=== PATIENT | female | born 1985 ===

== ENCOUNTER 2018-03-01 09:43 | Inpatient (IN) | payer MEDICAID, SELFPAY ==
[2018-02-28 20:00] VITALS: BMI 27.1
[2018-03-01] MEDS: Lactated Ringer's 1,000 ML IV ONE ×2 (10:30→11:30)
[2018-03-01 11:27] LABS: BASO % 0.2 % (0.0-2.0); EOS % 0.1 % (0.0-4.0); HEMOGLOBIN 11.4 g/dL (12.0-16.0); LYMPH # 1.7 K/uL (1.0-4.3); LYMPH % 8.8 % (20.0-40.0); MEAN CELL VOLUME 85.9 fl (81.0-99.0); MEAN CORPUSCULAR HGB CONC 33.7 g/dL (33.0-37.0); MEAN PLATELET VOLUME 10.2 fl (7.2-11.7); MONO # 0.9 K/uL (0.0-0.8); MONO % 4.5 % (0.0-10.0); NEUT % 86.4 % (50.0-75.0); NRBC % 0.1 % (0.0-0.0); PLATELET COUNT 234 K/uL (130-400); RBC 3.95 Mil/uL (3.80-5.20); RED CELL DISTRIBUTION WIDTH 14.8 % (11.5-14.5); WHITE BLOOD COUNT 19.7 K/uL (4.8-10.8)
[2018-03-01] MEDS ORDERED: Fentanyl/Bupivacaine HCl 250 ML EPI ONE (11:58)
[2018-03-01] MEDS ORDERED: Oxytocin 30 UNIT 30 UNITS/500 ML BAG IV ONE (12:22)
[2018-03-01] MEDS ORDERED: OXYTOCIN/0.9 % NS 20 UNIT/1,000 ML BAG IV SCH ×2 (12:30→17:44)
[2018-03-01 13:13] LABS: BANDS 1 % (0-2); LYMPHOCYTE 9 % (20-50); METAMYELOCYTE 1 % (0-0); MONOCYTE 2 % (0-10); NEUTROPHIL 87 % (42-75); PLATELET ESTIMATE NORMAL (NORMAL); TOTAL CELLS COUNTED 100
[2018-03-01 13:14] LABS: ANISOCYTOSIS SLIGHT; HYPOCHROMIC SLIGHT; LARGE PLATELETS PRESENT; TOXIC GRANULATION PRESENT
[2018-03-01] MEDS ORDERED: ceFAZolin 2 GM in Sodium Chloride 0.9% 100 ML IVPB ONE (13:15)
--- NOTE | 2018-03-01 13:25 | OBPN ---
Datetime: 03/01/2018 13:21 IP Informed Consent Obtain: Section Delivery FHR - Baseline A Provider: 140 IP Progress Note Comment: Patient evaluated, has been having repetative lates for over an hour despi te rescuscitation with changing positions and O2 mask.The patient has moderate variability and repeta tive lates. Discused with patient that because of the Cat II strip remote from delivery, the recommen dation for delivery is for . Discussed risks/benefits of surgery including risk of bleeding, infection, damage to surrounding organs, Ancef given pre-opertively, pt enroute to OR. Consent rigo d Vital Signs Provider: Reviewed NICHD Variability Prov Fetus A: Moderate 6-25bpm Dilatation, Provider: 4 Effacement, Provider: thick Station, Provider: -3 NICHD Decel Fetus A IP Provider: Late Datetime: 03/01/2018 10:35 Contraction Comments Provider: Q3 min IP Fetus A Comments: Sporadic late decelerations with one prolonged late deceleration with recovery Gestation - Est Wks by US: 41.0 Presentation-Admit: Vertex NICHD Accel Fetus A IP Provider: 15X15 FHR Category Provider Fetus A: Category II Datetime: 02/28/2018 20:18 Membranes, Provider: Intact
[2018-03-01] MEDS ORDERED: Morphine 1 mg/ml preservative-free Inj(Duramorph) ONE (14:34)
[2018-03-01] MEDS ORDERED: Oxycodone/Acetaminophen 5/325 mg Tab PO PRN ×2 (14:47→17:44)
--- NOTE | 2018-03-01 15:00 | OBDS ---
DELIVERY PERSONNEL Delivery Doctor: Areli Munoz MD Bladder Trimmer: Joselin Murcia RN Anesthesiologist: Ulices Gale MD Resident: Dr. Lena Beaver,OBR MATERNAL INFORMATION Delivery Anesthesia: Epidural Medications in Delivery: Pitocin 30 mu/500 mL LR, Pitocin 20 mu/1000 mL LR Estimated Blood Loss (ml): 600 Placenta Cultured: Yes Maternal Complications: None Provider Comments: Surgeon: Dr. Munoz Auto [employer]ic Dr. Paez OB fellow, Dr. Guerra PGY-3, Dr. Beaver PGY-1 Pre-operative Dx: Term with Cat-2 tracing remote from delivery Surgery: LTCS Post-op: same Findings: Live female infant vertex, 6lbs 5oz, 6/6/7 APGARS, thick meconium, grossly nml tubes ova jesse, placenta, uterus Anesthesia: epidural by Dr. Gale [id number] Total input: 1500mL HT=809 mL COmplications: none Condition: stable Pathology: cord ph, cord blood, placenta LABOR SUMMARY EDC: 02/22/2018 00:00 No. Babies in Womb: 1 LABOR INFORMATION Reason for Induction: Not Applicable Oxytocin: N/A Group B Beta Strep: Negative Antibiotics # of Doses: 1 Antibiotics Time of Last Dose: 1330 Steroids Given: None Reason Steroids Not Administered: Not Applicable MEMBRANES Amniotic Fluid Amount: Moderate PRESENTATION/POSITION BABY A Presentation: Cephalic
--- NOTE | 2018-03-01 15:05 | OBADHP ---
Datetime: 03/01/2018 13:21 FHR - Baseline A Provider: 140 Vital Signs Provider: Reviewed NICHD Variability Prov Fetus A: Moderate 6-25bpm NICHD Decel Fetus A IP Provider: Late Dilatation, Provider: 4 Effacement, Provider: thick Station, Provider: -3 Datetime: 03/01/2018 10:35 Admit Comment, IP Provider: HPI: Lashawn is a 33yo at 41.0 weeks here for evaluation of painful contractions. She's been seen here multiple times over the last 48 hours for painful contractions wi th no cervical change. Since going home last night she's continued to have painful contractions every 3-5 minutes. She was scheduled for induction of labor tonight but the pain has become too intense. D ating is by LMP with US at 20 weeks consistent with dates. ROS: No vaginal bleeding or LOF, good movement History G1: 2006, TAB G2: current PMH Not significant PSH Not significant Medications PNV Allergies NKDA Social Lives with partner and FOB. No tobacco, alcohol or drug use OBJECTIVE See PE section labs: Hep B neg, HIV/RPR neg (1st and 3rd tri), Rubella immune, GTT WNL, GBS neg Assessment/Plan: 33yo at 41.0 weeks here for painful contractions. Her last exam was yesterda y evening and she had not made any cervical change at that time. Given her dilation and effacement cu rrently she is in latent labor but is struggling with pain control. - Admit for expectant management of spontaneous labor - Epidural available - Can augment labor if necessary - GBS negative Ana Paez MD OB Fellow [facility] by Dr. Jones: Patient evaluated independently and I agree with the above Abdomen - PN: Normal Lungs - PN: Normal Heart - PN: Normal Neurologic - PN: Normal HEENT - PN: Normal General - PN: Normal Presentation-Admit: Vertex IP Fetus A Comments: Sporadic late decelerations with one prolonged late deceleration with recovery Contraction Comments Provider: Q3 min Gestation - Est Wks by US: 41.0 IP Chief Complaint: Uterine contractions NICHD Accel Fetus A IP Provider: 15X15 FHR Category Provider Fetus A: Category II EGA AdmitDate IP: 41.0 IP Adm Impression: Term, intrauterine IP Admit Plan: Admit to unit; Initiate labor protocol Datetime: 02/28/2018 20:18 Back - PN: Normal Membranes, Provider: Intact Genitourinary Exam: Not Done Datetime: 02/27/2018 04:15 Pelvic Type - PN: Adequate Extremities - PN: Normal Breast - PN: Not Done Thyroid - PN: Normal IP Hx Assessment: The History has been Reviewed and is Current DTRs - PN: Not Done
--- NOTE | 2018-03-02 02:17 | OP ---
PROCEDURE DATE: 03/01/2018 SURGEON: Yuki Munoz MD ASSISTANTS: Dr. Paez, OB Fellow; PGY-3; and Dr. Beaver, PGY-1. PREOPERATIVE DIAGNOSES: Term with category II tracing, remote from delivery, repetitive late decelerations. POSTOPERATIVE DIAGNOSES: Term with category II tracing, remote from delivery, repetitive late decelerations. PROCEDURE: Low transverse section. FINDINGS: Live female infant, vertex presentation, 6 pounds and 5 ounces, 6 and 7 Apgars, thick meconium. Grossly normal tubes, ovaries, placenta, and uterus. ANESTHESIA: Epidural by Dr. Gale. ESTIMATED BLOOD LOSS: 600 mL. TOTAL FLUID INPUT: 1300 mL. URINE OUTPUT: 700 mL. COMPLICATIONS: None. CONDITIONS: Stable. PATHOLOGY SPECIMEN: Cord pH, cord blood, and placenta. INDICATIONS: This is a 32-year-old G2, P0, at 41 weeks presented to labor and delivery with contractions and an early labor. The patient was found to have category II tracing with repetitive late decelerations in spite resuscitation with only 4 cm remote from delivery. The late decelerations did not resolve, and it was advised for the patient to proceed with for delivery. tracings the patient had minimal variability with late decelerations as well. The patient was advised of risks and benefits of the procedure including risk of bleeding, infection, and damage to surrounding organs such as bowel, bladder, ureter or uterus. The patient verbalized understanding and signed the informed consent. DESCRIPTION OF PROCEDURE: The patient was taken to OR. Ancef was given preoperatively. SCDs were placed bilaterally. The patient was prepped and draped in normal sterile fashion in dorsal supine position with a leftward tilt. Pfannenstiel skin incision was made with a scalpel and carried through the underlying layer of fascia with the scalpel and the Bovie. Fascia was incised in the midline, incision was extended laterally with the Bovie. Lili clamps were used to tent up the inferior aspect of this incision which we dissected off underlying pyramidalis muscles with the Bovie. In a similar fashion, we tented up the superior aspect of this incision, which we dissected off the underlying rectus abdominis muscles with Bovie. Muscles were bluntly at the midline. Peritoneum was identified and entered sharply with the Metzenbaum scissors. The incision was extended superiorly and inferiorly with good visualization of all underlying organs. The bladder flap was created with the Metzenbaum scissors. The lower uterine segment was incised in the transverse fashion with the scalpel. The uterine cavity was entered. The uterine incision was extended with bandage scissors. Thick meconium was noted. The infant was delivered in cephalic presentation followed by shoulders and rest of the infant in cephalic presentation. Cord was clamped and cut. Infant was handed off to the awaiting pediatric team. Cord pH was obtained and cord blood was also obtained. Placenta was extracted manually. Uterus exteriorized and cleared off all clots. Uterine incision was repaired with an 0 Vicryl stitch, and imbricating with an 0 Monocryl stitch. Hysterotomy site appeared to be hemostatic. The uterus was returned to the abdomen. Gutters were cleared off all clots. Again, hysterotomy site appeared to be hemostatic. The peritoneum was closed with a 2-0 Monocryl. The same incision was used to reapproximate the muscle. Fascia was closed with the 0 Vicryl. Small bleeders were cauterized with the Bovie and the skin was closed with a 4-0 Monocryl. Sponge, lap, and needle counts were correct x4. The patient was taken to the recovery room in stable condition. No other complications. Yuki Munoz MD
[2018-03-02 06:28] LABS: HEMOGLOBIN 8.4 g/dL (12.0-16.0); MEAN CELL VOLUME 88.3 fl (81.0-99.0); MEAN CORPUSCULAR HEMOGLOBIN 28.8 pg (27.0-31.0); MEAN CORPUSCULAR HGB CONC 32.6 g/dL (33.0-37.0); RBC 2.9 Mil/uL (3.80-5.20); RED CELL DISTRIBUTION WIDTH 14.9 % (11.5-14.5); WHITE BLOOD COUNT 16.4 K/uL (4.8-10.8)
[2018-03-02] MEDS: Multivitamin With Minerals Tab PO SCH (08:59)
[2018-03-02] MEDS ORDERED: Multivitamin With Minerals Tab PO SCH (09:00)
--- NOTE | 2018-03-02 14:13 | OBPPN ---
Datetime: 03/02/2018 13:54 PP Pain Prov: Within normal limits PP Nausea Prov: Denies PP Flatus Prov: Yes PP BM Prov: No PP Breasts Prov: Normal PP Heart Prov: Normal PP Lungs Prov: Normal PP Abdomen/Uterus Prov: Normal PP Lochia Prov: Normal PP Vulva/Perineum Prov: Normal PP CVA Tenderness Prov: Normal PP Extremities Prov: Normal PP C/S Incision Prov: Normal PP Progress Prov: Normal PP Impression Prov: Normal progression PP Plan Prov: Continue present management PP Progress Note Prov: OB Hospitalist on-call. Pt seen on rounds today She feels fine; no problems H/H 02/13 A; S/P C/S day 1 PLAN: contiune postop care Vital Signs Provider PP: Reviewed; Within Normal Limits
[2018-03-03] MEDS: Multivitamin With Minerals Tab PO SCH (08:37)
--- NOTE | 2018-03-03 12:51 | OBPPN ---
Datetime: 03/03/2018 06:09 PP Pain Prov: Within normal limits PP Nausea Prov: Denies PP Flatus Prov: Yes PP BM Prov: No PP Breasts Prov: Not Done PP Heart Prov: Normal PP Lungs Prov: Normal PP Abdomen/Uterus Prov: Normal PP Lochia Prov: Normal PP Vulva/Perineum Prov: Not Done PP CVA Tenderness Prov: Normal PP Extremities Prov: Normal PP C/S Incision Prov: Normal PP Progress Prov: Normal PP Comments Phys Exam Prov: hgb 8.4 PP Impression Prov: Normal progression PP Plan Prov: Continue present management PP Progress Note Prov: Patient seen and examined at the bedside in morning. Patient lying comfortabl y in bed. States she passed flatus, but no BM. She reports taking a stool softner yesterday. Tolerating PO diet. Lochia like menses. Patient without any difficulties. VSS, Afebrile Gen: NAD Lungs: CTA bilaterally CVS: RRR, S1, S2 WNL, no murmurs. Abd: ND, +BS, appropriated tenderness, fundus firm at umbilical level. incision intact. Ext: No edema, negative calf tenderness. Neuro/psych: AAOx3 A/P: 32 y/o female 41.0 wk GA ppd2 s/p -Encourage ambulation -Diet as tolerated -Ibuprofen 600 mg for pain mgmt -Senakot and colace for constipation -anticipated discharge 03/04/2018 Evelyn Hua PGY-I Patient seen and evaluated by me. Agree with above resident note. Ambulation encouraged. Continue pain meds as needed. encouraged. Vital Signs Provider PP: Reviewed; Within Normal Limits
[2018-03-04] MEDS: Multivitamin With Minerals Tab PO SCH (08:32)
--- NOTE | 2018-03-04 10:54 | OBDCSUM ---
Datetime: 03/03/2018 23:37 Discharged to, Provider: Home Follow up at, Provider: Dr. Guerra Disch Instr Diet: Regular Discharge Instructions, Provider: Routine instructions given Discharge Diagnosis, Provider: Term Delivered Discharge Time: 03/04/2018 11:00 Follow up in weeks, Provider: 1-2 weeks Disch Referrals: None Disch Activity Restrictions: No lifting; No sexual activity; Nothing in vagina - [place], tampon s, douche Discharge Comment, Provider: DOA: 03/01/2018 EGA: 41.0 Dx: Term intrauterine 32 y/o f presented at 41.1 weeks GA w/ c/o painful contractions, cervix closed. She developed late decels, and underwent . L_D summary: Recurrent decels, w/o complications. EBL 800mL. Thick meconium in amniotic fluid. DOL: 03/01/18 13:49 5/6/7 Weight 2850 No serious complications during PP/Post op Lochia like menses, mild pain, controllled w/ rx Rubella Immune, tdab 01/15/18 Blood type O+ CBC pp H/H 8.4/25.6 Discharge date 03/04/2018 Time: 12:40 Discharge instructions: -encourage -ibuprofen for pain PRN -Senokot 17.2mg qHs for constipation -ambulate as tolerated -patient scheduled for f/u w/ Dr. Guerra on 02/09 for wound check and in 4-6 weeks for f/u. Evelyn Hua PGY-I Attending addendum: I saw and examined the patient myself this morning at bedside. I reviewed the resident note above and agree with findings and management. Contraception after Delivery: Undecided
--- NOTE | 2018-03-04 10:54 | OBPPN ---
Datetime: 03/04/2018 05:05 PP Pain Prov: Within normal limits PP Nausea Prov: Denies PP Flatus Prov: Yes PP BM Prov: Yes PP Breasts Prov: Not Done PP Heart Prov: Normal PP Lungs Prov: Normal PP Abdomen/Uterus Prov: Normal PP Lochia Prov: Normal PP Vulva/Perineum Prov: Not Done PP CVA Tenderness Prov: Normal PP Extremities Prov: Normal PP C/S Incision Prov: Normal PP Progress Prov: Normal PP Impression Prov: Normal progression PP Plan Prov: Continue present management; Discharge PP Progress Note Prov: Patient seen and examined at the bedside in morning. Patient lying comfortabl y in bed. Reports passing stool. Tolerating PO diet.Lochia like menses. Patient without any difficulties. VSS, Afebrile Gen: NAD Lungs: CTA bilaterally CVS: RRR, S1, S2 WNL, no murmurs. Abd: ND, +BS, appropriated tenderness, fundus firm at umbilical level. incision intact. Ext: No edema, negative calf tenderness. Neuro/psych: AAOx3 A/P: 32 y/o female 41.0 wk GA ppd3 s/p -Encourage ambulation -Diet as tolerated -Ibuprofen 600 mg for pain mgmt -Senakot for constipation -anticipated discharge today Evelyn Hua PGY-I Attending addendum: I saw and examined the patient myself this morning at bedside. I reviewed the resident note above and agree with findings and management. DC home today after ND supp for constipation. Anemia: asymptomatic, iron supplement po TID X 3 months and PNV. Vital Signs Provider PP: Reviewed; Within Normal Limits
[2018-03-04 20:42] VITALS: BP 105/66; PULSE 79; RESP 20; TEMP 98; O2SAT 98
== END 2018-03-04 14:20 | disposition home or self-care (01) | DRG 371 ==
LOC: H.EROB2 09:43 → H.L&D 09:46 → H.EROB2 10:22 → H.L&D 10:23 → H.OB/GYN 17:06
PROVIDERS: ADMIT Obstetrics & Gynecology; ATTEND Obstetrics & Gynecology
PROC: 10D00Z1 Extraction of Products of Conception, Low, Open Approach (ICD-10-PCS; principal; 2018-03-01)
PROC: 4A1HXCZ Monitoring of Products of Conception, Cardiac Rate, External Approach (ICD-10-PCS; 2018-03-01)
DX: O48.0 Post-term pregnancy (principal); O76 Abnormality in fetal heart rate and rhythm complicating labor and delivery; O77.0 Labor and delivery complicated by meconium in amniotic fluid; Z3A.41 41 weeks gestation of pregnancy; Z37.0 Single live birth; K59.00 Constipation, unspecified

== ENCOUNTER 2018-03-10 23:23 | Emergency (ER) | payer SELFPAY ==
[2018-03-10 23:24] VITALS: BMI 27.1
[2018-03-11] VITALS: RESP 17
[2018-03-11] MEDS ORDERED: Sodium Chloride 0.9% 1,000 ML IV STA ×2 (00:10→01:51)
--- NOTE | 2018-03-11 00:43 | ED PDOC ---
HPI: Abdomen Time Seen by Provider: 03/11/18 00:03 Chief Complaint (Nursing): Wound Check Chief Complaint (Provider): Abdominal pain, fever History Per: Patient History/Exam Limitations: no limitations Onset/Duration Of Symptoms: Days Current Symptoms Are (Timing): Still Present Location Of Pain/Discomfort: Diffuse Associated Symptoms: Fever Additional History Per: Patient Additional Complaint(s): 32yo female, currently s/p a 10 days ago, comes to ER reporting fever x 1 day. She states she felt normal until today but now has abdominal pain, diffuse bodyaches and a headache. Patient reports normal urine and denies any diarrhea. She last took Tylenol at 4pm yesterday with minimal relief. She denies any discharge, swelling or redness to the surgical site. PMD: [facility] Past Medical History Reviewed: Historical Data, Nursing Documentation, Vital Signs Vital Signs: Last Vital Signs Temp 100.1 F H 03/11/18 03:03 Pulse 92 H 03/11/18 03:03 Resp 17 03/11/18 03:03 BP 121/56 L 03/11/18 03:03 Pulse Ox 99 03/11/18 03:05 - Medical History PMH: No Chronic Diseases Denies: Depression, Diabetes, HTN - Surgical History Surgical History: - Family History Family History: States: No Known Family Hx - Living Arrangements Living Arrangements: With Family - Home Medications Home Medications: Ambulatory Orders Medication Instructions Recorded Vit No.126/Iron/Folic 1 tab PO DAILY 03/01/18 [Classic Tablet] Docusate [Colace] 100 mg PO BID 90 Days cap 03/04/18 Docusate [Colace] 100 mg PO TID PRN 10 Days cap 03/04/18 Ferrous Sulfate [Feosol] 325 mg PO TID 90 Days tab 03/04/18 Ibuprofen [Motrin Tab] 600 mg PO Q6H PRN 20 Days #20 tab 03/04/18 Multimineral/Multivitamin 1 tab PO DAILY tab 03/04/18 [Therapeutic-M Tab] oxyCODONE/Acetaminophen [Percocet 1 tab PO Q4 PRN #20 tab 03/04/18 5/325 mg Tab] - Allergies Allergies/Adverse Reactions: Allergies Allergy/AdvReac Type Severity Reaction Status Date / Time No Known Allergies Allergy Verified 09/09/18 20:00 Review of Systems ROS Statement: Except As Marked, All Systems Reviewed And Found Negative Constitutional: Positive for: Fever Cardiovascular: Negative for: Chest Pain Respiratory: Negative for: Shortness of Breath Gastrointestinal: Positive for: Abdominal Pain. Negative for: Nausea, Vomiting , Diarrhea Genitourinary Female: Negative for: Dysuria, Frequency, Hematuria Physical Exam - Reviewed Nursing Documentation Reviewed: Yes Vital Signs Reviewed: Yes - Physical Exam Appears: Positive for: Non-toxic, No Acute Distress Head Exam: Positive for: ATRAUMATIC, NORMAL INSPECTION, NORMOCEPHALIC Skin: Positive for: Normal Color Eye Exam: Positive for: Normal appearance Neck: Positive for: Normal, Supple Cardiovascular/Chest: Positive for: Regular Rate, Rhythm, Tachycardia Respiratory: Positive for: Normal Breath Sounds Gastrointestinal/Abdominal: Positive for: Soft, Tenderness (right upper quadrant ), Other ( site is clean and healing well; no erythema, discharge or swelling noted. No signs of infection.). Negative for: Mass, Guarding, Rebound Back: Positive for: Normal Inspection. Negative for: L CVA Tenderness, R CVA Tenderness Extremity: Positive for: Normal ROM. Negative for: Pedal Edema Neurologic/Psych: Positive for: Alert, Oriented. Negative for: Motor/Sensory Deficits - Laboratory Results Result Diagrams: 03/11/18 00:25 03/11/18 00:25 - ECG O2 Sat by Pulse Oximetry: 99 (RA) Pulse Ox Interpretation: Normal Medical Decision Making Medical Decision Making: Impression: 32yo female, status post , here with febrile illness Plan: * Labs * IV Fluids * Tylenol 975mg PO * Rapid flu * Urinalysis Time: 0141 Urinalysis reviewed and noted to be unremarkable; rapid flu negative. Leukocytosis noted. CT Abdomen/Pelvis ordered Time: 0303 CT Abdomen/Pelvis FINDINGS: Lung bases: Unremarkable. No mass. No consolidation. ABDOMEN: Liver: Unremarkable. No mass. Gallbladder and bile ducts: Unremarkable. No calcified stones. No ductal dilation. Pancreas: Unremarkable. No mass. No ductal dilation. Spleen: Unremarkable. No splenomegaly. Adrenals: Unremarkable. No mass. Kidneys and ureters: Unremarkable. No solid mass. No hydronephrosis. Stomach and bowel: Unremarkable. No obstruction. No mucosal thickening. PELVIS: Appendix: No findings to suggest acute appendicitis. Bladder: Unremarkable. No mass. Reproductive: Enlarged uterus consistent with the history of recent section. Central endometrial thickening or fluid. ABDOMEN and PELVIS: Intraperitoneal space: No free air. Small free fluid in the pelvis. Bones/joints: No acute fracture. No dislocation. Soft tissues: Small paraumbilical subcutaneous fluid/edema. Trace subcutaneous edema in the region of the low transverse incision. Vasculature: Unremarkable. No abdominal aortic aneurysm. Lymph nodes: Unremarkable. No enlarged lymph nodes. IMPRESSION: Enlarged uterus consistent with the history of recent section. Central endometrial thickening or fluid. Small free fluid in the pelvis. No acute findings. Chest x-ray ordered. Time: 0339 Chest x-ray FINDINGS: Lungs: Unremarkable. No consolidation. Pleural space: Unremarkable. No pneumothorax. Heart: Unremarkable. No cardiomegaly. Mediastinum: Unremarkable. Bones/joints: Unremarkable. IMPRESSION: No acute cardiopulmonary process On reassessment, patient reports improvement of symptoms. Patient informed of imaging studies and given dose of antibiotics prophylactically. Instructed to follow up with PMD in 2-3 days and to take medications as prescribed. Scribe Attestation: Documented by Mary Recinos, acting as a scribe for Jose M Delatorre MD. Provider Scribe Attestation: All medical record entries made by the Scribe were at my direction and personally dictated by me. I have reviewed the chart and agree that the record accurately reflects my personal performance of the history, physical exam, medical decision making, and the department course for this patient. I have also personally directed, reviewed, and agree with the discharge instructions and disposition. Disposition - Clinical Impression Clinical Impression: Viral illness - Disposition Referrals: Latricia Guerra [Primary Care Provider] - Disposition: Routine/Home Disposition Time: 03:48 Condition: STABLE Instructions: Viral Syndrome (DC) Forms: [employer] (Mongolian)
[2018-03-11 01:12] LABS: SQUAMOUS EPITHIAL 1 /hpf (0-5); URINE BILIRUBIN NEGATIVE (NEGATIVE); URINE BLOOD NEGATIVE (NEGATIVE); URINE CLARITY CLEAR (Clear); URINE COLOR YELLOW (YELLOW); URINE GLUCOSE (UA) NEG (Normal); URINE LEUKOCYTE ESTERASE NEG Leu/uL (Negative); URINE PROTEIN NEGATIVE (NEGATIVE); URINE UROBILINOGEN 0.2-1.0 mg/dL (0.2-1.0)
[2018-03-11 01:17] LABS: BASO % 0.3 % (0.0-2.0); EOS # 0.1 K/uL (0.0-0.7); EOS % 0.7 % (0.0-4.0); HEMOGLOBIN 10.4 g/dL (12.0-16.0); LYMPH % 7.5 % (20.0-40.0); MEAN CELL VOLUME 87.6 fl (81.0-99.0); MEAN CORPUSCULAR HEMOGLOBIN 28.1 pg (27.0-31.0); MEAN CORPUSCULAR HGB CONC 32.1 g/dL (33.0-37.0); MEAN PLATELET VOLUME 8.1 fl (7.2-11.7); MONO # 0.5 K/uL (0.0-0.8); MONO % 3.5 % (0.0-10.0); NEUT # 12.2 K/uL (1.8-7.0); PLATELET COUNT 428 K/uL (130-400); RBC 3.69 Mil/uL (3.80-5.20); RED CELL DISTRIBUTION WIDTH 14.7 % (11.5-14.5); WHITE BLOOD COUNT 13.8 K/uL (4.8-10.8)
[2018-03-11 01:22] LABS: ALB/GLOB RATIO 0.9 (1.0-2.1); ALBUMIN 3.7 g/dL (3.5-5.0); ALT/SGPT 33 U/L (9-52); AST/SGOT 28 U/L (14-36); BLOOD UREA NITROGEN 12 mg/dl (7-17); GFR NON-AFRICAN AMERICAN > 60
[2018-03-11 02:09] LABS: BANDS 3 % (0-2); EOSINOPHIL 1 % (0-7); LYMPHOCYTE 4 % (20-50); MONOCYTE 3 % (0-10); NEUTROPHIL 89 % (42-75); PLATELET ESTIMATE SLIGHTLY INCREASED (NORMAL); TOTAL CELLS COUNTED 100
[2018-03-11] MEDS ORDERED: Iohexol 300 100 ML IJ ONE (02:10)
[2018-03-11] MEDS ORDERED: Sodium Chloride 0.9% 50 ML IV ONE (02:10)
[2018-03-11 02:12] LABS: HYPOCHROMIC MODERATE
[2018-03-11 02:13] LABS: ANISOCYTOSIS SLIGHT
[2018-03-11 03:04] VITALS: O2SAT 99
[2018-03-11] MEDS ORDERED: Azithromycin 500 MG in Sodium Chloride 0.9% 250 ML IVPB STA (03:34)
[2018-03-11] MEDS ORDERED: cefTRIAXone (Rocephin) 1 gm Inj ONE (03:55)
[2018-03-11 05:21] VITALS: BP 112/78; PULSE 87; TEMP 99.8
--- NOTE | 2018-03-11 09:35 | RAD ---
Date of service: 03/11/2018 HISTORY: SOB COMPARISON: No prior. FINDINGS: LUNGS: No active pulmonary disease. PLEURA: No significant pleural effusion identified, no pneumothorax apparent. CARDIOVASCULAR: Normal. OSSEOUS STRUCTURES: No significant abnormalities. VISUALIZED UPPER ABDOMEN: Normal. OTHER FINDINGS: None. IMPRESSION: No active disease.
--- NOTE | 2018-03-11 10:26 | CT ---
Date of service: 03/11/2018 PROCEDURE: CT Abdomen and Pelvis with contrast HISTORY: Fever and pain 10 day status post COMPARISON: None. TECHNIQUE: Contrast dose: 90 mL Omnipaque 300 Radiation dose: Total exam DLP = 290.14 mGy-cm. This CT exam was performed using one or more of the following dose reduction techniques: Automated exposure control, adjustment of the mA and/or kV according to patient size, and/or use of iterative reconstruction technique. FINDINGS: LOWER THORAX: Unremarkable. LIVER: Unremarkable. No gross lesion or ductal dilatation. GALLBLADDER AND BILE DUCTS: Unremarkable. PANCREAS: Unremarkable. No gross lesion or ductal dilatation. SPLEEN: Unremarkable. ADRENALS: Incidental 11 mm left adrenal nodule common nonspecific. KIDNEYS AND URETERS: Unremarkable. No hydronephrosis. No solid mass. VASCULATURE: Unremarkable. No aortic aneurysm. BOWEL: Unremarkable. No obstruction. No gross mural thickening. APPENDIX: Normal appendix. PERITONEUM: No ascites. Transverse lower anterior abdominal wall wound. Trace gas seen within the rectus muscles on the right. No abscess. No pneumoperitoneum. LYMPH NODES: Unremarkable. No enlarged lymph nodes. BLADDER: Unremarkable. REPRODUCTIVE: Somewhat enlarged edematous uterus consistent with recent . BONES: No acute fracture. OTHER FINDINGS: None. IMPRESSION: No evidence of abscess, status post recent . Trace gas in the right rectus abdominus muscle consistent with recent surgery. Incidental 11 mm left adrenal nodule, statistically likely adrenal adenoma. The preliminary findings for this examination were reported by [facility] at time. There is concurrence of this report with the preliminary findings.
== END 2018-03-11 05:10 | disposition home or self-care (01) ==
LOC: H.ER 23:23
DX: B34.9 Viral infection, unspecified (principal)
CPT/HCPCS: 71045; 74177; 80053; 81003; 81025; 83605; 85025; 87040; 87086; 87804; 96361; 96365; 96375; 99282; J0696; J1885; J7030; Q9967